=== PATIENT | female | born 2000 | race Caucasian/White ===

== ENCOUNTER 2024-07-21 11:43 | Emergency (ER) | payer BC, OTHER ==
[2024-07-21] MEDS: Acetaminophen 500 MG Tab PO ONE (12:30)
[2024-07-21 13:10] VITALS: BP 110/61; PULSE 117
== END 2024-07-21 13:30 | disposition home or self-care (01) ==
LOC: VM.ED 11:43
DX: J40 Bronchitis, not specified as acute or chronic (principal); Z79.899 Other long term (current) drug therapy
CPT/HCPCS: 71046; 87428-QW; 99283; A9270-GY